=== PATIENT | male | born 2000 | race Caucasian/White ===

== ENCOUNTER 2019-12-08 22:02 | Emergency (ER) | payer OTHER ==
--- NOTE | 2019-12-08 22:55 | ER Document Report ---
ED General - General Chief Complaint: Hand Injury Stated Complaint: RIGHT HAND INJURY Notes: Patient is a 18-year-old white male with no significant past medical history presents the emergency department the chief complaint of right hand pain. The patient reports that he punched a dresser with his right hand. States he has pain and swelling that has developed since along the medial edge overlying the fifth metacarpal. Patient states he did this once before to the same area. He denies any numbness or tingling. Admits to pain over the area described above. No other pain, complaints or concerns at this time. - Related Data Allergies/Adverse Reactions: No Known Allergies Allergy (Unverified 12/08/19 22:49) Past Medical History - Social History Smoking Status: Former Smoker Frequency of alcohol use: None Drug Abuse: None Family History: Reviewed & Not Pertinent Review of Systems - Review of Systems Constitutional: denies: Fever EENT: denies: Throat pain Cardiovascular: denies: Chest pain Respiratory: denies: Short of breath Gastrointestinal: denies: Abdominal pain Genitourinary: denies: Pain Male Genitourinary: denies: Testicular pain Musculoskeletal: Joint pain, Joint swelling Skin: denies: Lesions Hematologic/Lymphatic: denies: Easy bruising Neurological/Psychological: denies: Headaches Physical Exam - Vital signs Vitals: Temp Pulse Resp BP Pulse Ox 98.0 F 67 16 147/84 H 97 12/08/19 22:12 12/08/19 22:12 12/08/19 22:12 12/08/19 22:12 12/08/19 22:12 - General General appearance: Appears well, Alert In distress: None - Respiratory Respiratory status: No respiratory distress Chest status: Nontender Breath sounds: Normal Chest palpation: Normal - Cardiovascular Rhythm: Regular Heart sounds: Normal auscultation - Extremities Hand: Other - Swelling dorsally over the right fifth meta carpal. Tenderness and questionable palpation of deformity is appreciated. Patient has near full range of motion of all the digits but limited in creating a fist secondary to pain and swelling. Good capillary refill distally. 2+ radial on the right. No wrist pain. Full passive range of motion of the wrist on the right. Nontender right forearm. Full passive range of motion of the right elbow. - Neurological Neuro grossly intact: Yes Cognition: Normal Orientation: AAOx4 - Psychological Associated symptoms: Normal affect, Normal mood - Skin Skin Temperature: Warm Skin Moisture: Dry Skin Color: Normal Course - Re-evaluation Re-evalutation: 12/08/19 23:25 Ulnar gutter splint placed by quality assurance/r&d lab technician. Neurovascular intact status post as evaluated by me. Patient placed in a sling for comfort. Given a short course of pain medications. Will refer him to orthopedics for definitive care and further management. Discussed with him the importance of outpatient follow-up and advised that he return here or any ER immediately with any new, persistent or worsening symptoms. He verbalized understood and agreed. - Vital Signs Vital signs: Temp Pulse Resp BP Pulse Ox 98.0 F 67 16 147/84 H 97 12/08/19 22:12 12/08/19 22:12 12/08/19 22:12 12/08/19 22:12 12/08/19 22:12 Discharge - Discharge Clinical Impression: Boxer's fracture Qualifiers: Encounter type: initial encounter Fracture type: closed Qualified Code(s): S62.339A - Displaced fracture of neck of unspecified metacarpal bone, initial encounter for closed fracture Condition: Stable Disposition: HOME, SELF-CARE Instructions: Fractured Fifth Metacarpal ([facility]) Additional Instructions: Please call the orthopedic doctor listed on your paperwork tomorrow to establish outpatient follow-up and further care. Please return here or any ER immediately with any new, persistent or worsening symptoms. Referrals: MINO HOUSTON MD [ACTIVE STAFF] - Follow up as needed
[2019-12-08] MEDS ORDERED: HYDROCODONE/ACETAMINOPHEN 5-325 MG (6 TAB/ER DISP) PO PRN (23:27)
--- NOTE | 2019-12-08 23:33 | RADIOLOGY REPORT (SQ) ---
EXAM DESCRIPTION: X-RAY right Hand CLINICAL HISTORY: Trauma to fifth metacarpal COMPARISON: None available TECHNIQUE: Three views of the right hand. FINDINGS: There is a comminuted mildly displaced mildly angulated fracture involving the mid to distal right fifth metacarpal. The joint spaces of the hand and wrist are relatively well preserved. There are no periosteal reactions. There is diffuse soft tissue swelling. There is no visualization of any radiopaque foreign bodies in the soft tissues of the hand. If there is persistence of wrist pain, repeat films can be done in few days interval. IMPRESSION: Comminuted mildly displaced mildly angulated fracture involving the mid to distal right fifth metacarpal.
[2019-12-09 00:11] VITALS: BP 140/80
== END 2019-12-08 23:39 | disposition home or self-care (01) ==
LOC: ER 22:02
PROC: 2W3CX1Z Immobilization of Right Lower Arm using Splint (ICD-10-PCS; principal; 2019-12-08)
DX: S62.339A Displaced fracture of neck of unspecified metacarpal bone, initial encounter for closed fracture (principal); M79.641 Pain in right hand; X58.XXXA Exposure to other specified factors, initial encounter; Z87.891 Personal history of nicotine dependence
CPT/HCPCS: 99283